=== PATIENT | male | born 1955 | race Caucasian/White ===

== ENCOUNTER 2017-03-13 05:05 | Inpatient (IN) ==
[2017-03-13 06:46] LABS: Basophils % 0.5 % (0.0-0.8); Eosinophils % 0.4 % (0.00-10.9); Hematocrit 44.9 VOL% (42.0-52.0); Hemoglobin 15.4 GM/DL (14.0-18.0); Immature Granulocytes % 0.4 %; Immature Granulocytes Absolute 0.02 #; Lymphocytes # 0.8 10*3/uL (1.4-4.0); Lymphocytes % 14.3 % (21.2-54.2); Mean Corpuscular HGB Conc 34.3 GM/DL (32-36); Mean Corpuscular Hemoglobin 31 PG (27-34); Mean Corpuscular Volume 89.1 FL (87-102); Mean Platelet Volume 9.3 FL (9.6-12.0); Monocytes # 0.5 10*3/uL (0.11-0.8); Monocytes % 8.1 % (1.7-12.7); Neutrophils # 4.2 10*3/uL (1.4-7.4); Neutrophils % 76.3 % (38.7-73.9); Platelet Count 254 T/CUMM (130-400); Red Blood Count 5.04 MC/CUMM (3.8-5.5); Red Cell Distribution Width 12.5 % (9.3-17.3); White Blood Count 5.5 T/CUMM (4-12)
[2017-03-13 07:31] LABS: Albumin 4.2 G/DL (3.4-5.0); Bilirubin,Total 1.5 MG/DL (0.2-1.0); Osmolality,Calculated 279.7 MOS/KG (273-304); Potassium 4.4 MMOL/L (3.5-5.1); Total Protein 7.2 G/DL (6.4-8.3)
--- NOTE | 2017-03-13 08:21 | Ultrasound Report ---
Right upper quadrant ultrasound Indication: Abdominal Pain Findings: The liver is normal in size and echogenicity. The gallbladder has multiple calculi with suggestion of trace amount of sludge present within the lumen. The gallbladder wall thickness is 5.0 mm . The common bile duct measures 6. mm. The visualized portion of the pancreas appear within normal limits The right kidney is normal in size and echogenicity and measures 10.8 cm . No free fluid or free air seen. Impression: Cholelithiasis with suggestion of trace amount sludge. No secondary signs of acute cholecystitis or other evidence of abnormality demonstrated. Ultrasound images stored and captured. PROCEDURE INTERPRETED AT [facility] DEPARTMENT OF RADIOLOGY Final Report Signed by: Dr. Peter Baldwin
--- NOTE | 2017-03-13 08:34 | Emergency Department Note ---
Katerine Garza Brittany, am scribing for, and in the presence of, Abhi Newsome MD 06:23. Mercedez Garza Phillip K, MD, personally performed the services described in this documentation, ascribed by Alix Garcias in my presence, and it is both accurate and complete 829 . Arrival - Arrival Chief Complaint: Abdominal / Flank Pain Stated Complaint: Severe Stomach pain ED Nursing Triage Note: C/O Upper abd pain radiating into back. Onset 2200 lastnight. Pt states that he has had the pain on and off for 1-2 months- was seen by Dr. Villar and was given antiacid due to the pain becoming more frequent after he eats. +abd bloating. +nausea Last BM-yesterday- normal. Denies fever. Mode of Arrival: Ambulatory Limitations: No Limitations Source: Patient Time Seen by Provider: 03/13/17 06:05 - History of Present Illness HPI Narrative: This is a 61 y/o white male,who presents to the ED with c/o abdominal pain which has been on and off for the past month. he localizes the pain to the RUQ. He states he normally takes acid blockers. He notes nausea but denies a fever or vomiting. He states his last normal BM was yesterday. He denies a Hx of gallstones. He states the pain is worse at night. He does a hx of stomach ulcers "some years ago.". He denies any melena. He reports now the pain has resolved somewhat. Pt has no other complaints/pain in the ED at this time. Pt has a PMHx of GERD and stomach ulcers. Pt denies a surgical Hx. Pt denies a family medical Hx. Pt denies the use of street drugs and tobacco products, but is an occasional drinker. Onset (ago): month(s) (Started 1 month ago.) Consistency: intermittent Severity: moderate Allergies/Adverse Reactions: Allergies Allergy/AdvReac Type Severity Reaction Status Date / Time No Known Allergies Allergy Unverified 11/13/15 15:15 Home Medications: Home Medications Medication Instructions Recorded Confirmed Type Levothyroxine Tab [Synthroid Tab] 75 mcg PO DAILY@0700 11/13/15 03/13/17 History Review of System - Review of System 12 point system: reviewed and no additional remarkable complaints except as stated - Review of System Constitutional: Present: fever Gastrointestinal: Present: abdominal pain, nausea. Absent: vomiting, melena Medical,Surgical,& Family Hx - Medical History Gastrointestinal: History of: GERD, GI Problems (Stomach ulcers) - Social History Smoking Status: Never smoker Frequency of Alcohol Use: Occasionally Type of Drug Use: None Exam Vital Signs: Vital Signs Temperature 98.5 F 03/13/17 05:12 Pulse Rate 87 03/13/17 08:15 Respiratory Rate 18 03/13/17 08:15 Blood Pressure 117/72 03/13/17 08:15 O2 Sat by Pulse Oximetry 100 03/13/17 08:15 - General General appearance: alert, in no apparent distress - Head Head exam: Present: atraumatic, normocephalic, normal inspection - Eye Eye exam: Present: normal appearance, PERRL, EOMI. Absent: nystagmus - ENT ENT exam: Present: normal exam, mucous membranes moist - Neck Neck exam: Present: normal inspection, full ROM, trachea midline. Absent: tenderness - Chest Chest inspection: Present: normal inspection, symmetric chest wall rise. Absent : tenderness - Respiratory Respiratory exam: Present: normal lung sounds bilaterally. Absent: respiratory distress - Cardiovascular Cardiovascular exam: Present: regular rate, normal rhythm, normal heart sounds. Absent: murmur, rubs, gallop, clicks - Abdominal Exam Abdominal exam: Present: soft, tenderness (Slight upper gastric tenderness), normal bowel sounds. Absent: distention, guarding, rebound, rigidity - Rectal Exam Rectal exam: Present: deferred - Extremities Exam Extremities exam: Present: normal inspection, full ROM, normal capillary refill. Absent: tenderness - Back Exam Back exam: Present: normal inspection, full ROM. Absent: tenderness, muscle spasm, rashes - Neurological Exam Neurological exam: Present: alert, oriented X3, CN II-XII intact. Absent: motor sensory deficit - Psychiatric Psychiatric exam: Present: normal affect, normal mood. Absent: depressed, agitated, anxious, flat affect - Skin Skin exam: Present: warm, dry, intact, normal color. Absent: rash, cyanosis, diaphoresis Results - Labs CBC & BMP: 03/13/17 06:28 03/13/17 06:28 Lab Results: I have reviewed the patients labs Labs: Laboratory Tests 03/13/17 06:28 WBC 5.5 RBC 5.04 Hgb 15.4 Hct 44.9 MCV 89.1 MCH 31 MCHC 34.3 RDW 12.5 Plt Count 254 MPV 9.3 L Neut % (Auto) 76.3 H Lymph % (Auto) 14.3 L Mason % (Auto) 8.1 Eos % (Auto) 0.4 Baso % (Auto) 0.5 Neut # (Auto) 4.2 Lymph # (Auto) 0.8 L Mason # (Auto) 0.5 Eos # (Auto) 0.0 Baso # (Auto) 0.0 Immature Gran % 0.4 Nucleated RBC % 0.0 Immature Gran # 0.02 Nucleated RBCs # 0.00 Immature Plt Fraction 0.0 - Diagnostic Findings Procedure: Ultrasound: report reviewed by me (Cholelithiasis with sludge) Disposition Clinical Impression: Cholelithiasis, Possible common bile duct stone Case discussed with: patient Condition: Stable Additional Instructions: Admit to Dr. Villar
[2017-03-13] MEDS ORDERED: ONDANSETRON 4 MG/2 ML VIAL IV PRN (10:15)
[2017-03-13] MEDS ORDERED: ACETAMINOPHEN 325 MG TABLET PO PRN (10:15)
--- NOTE | 2017-03-13 13:09 | General Surgery Consult Note ---
Assessment and Plan (1) Cholelithiasis Status: Acute Assessment and plan: This patient has symptomatic cholelithiasis. He has abnormal LFTs. These do not represent an obstructive pattern in my opinion but we should trend them to make sure that a preoperative ERCP would not be necessary. He will be admitted to Dr. Villar and I have ordered antibiotics Zosyn and repeat LFTs and CBC tomorrow. If his bilirubin is trending down and his alkaline phosphatase is still normal I will recommend laparoscopic cholecystectomy tomorrow. If his labs are heading in the opposite direction then I will consult Dr. Nowak for a preoperative ERCP. Hepatitis is also a possibility but I think that the much more common and likely scenario would be cholecystitis from his gallstones and sludge and I think addressing this versus appropriate to see if he responds to this. I have discussed the operation with the patient and his . I have discussed the risks, benefits, and alternatives of the operation, and the expected outcomes have been reviewed. I have also discussed the possibility of an open operation. In particular, I discussed the risk of bleeding, infection, hernias of the abdominal wall, injury to the intestines or liver, pancreatitis, dropped or retained stones in the abdomen, bile leak, and bile duct injury. The patient's questions have been answered. Current Visit: Yes History of Present Illness Chief complaint: Abdominal pain History of present illness: Mr. Lewis is a 61 year old male who has been developing intermittent right upper quadrant pain that radiates through to his back for the past several months which is postprandial with some nausea but no vomiting. He had a severe episode today and presented to the ER for evaluation. He was evaluated in the ER with CBC which showed a normal white blood cell count and some transaminitis in the 600-700 range as well as an elevated bilirubin at 1.5. He received some pain medication in the ER and was no longer in any pain when I saw him. The patient does have a history of alcohol use but does not drink heavily or every day. He did receive some vaccinations in the but no blood transfusions. He denies any significant past medical history and he has never had abdominal surgery. 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 Home Medications Medication Instructions Recorded Confirmed Type Levothyroxine Tab [Synthroid Tab] 75 mcg PO QAM 11/13/15 03/13/17 History Omeprazole [Omeprazole] 20 mg PO DAILY 03/13/17 03/13/17 History Allergies Allergy/AdvReac Type Severity Reaction Status Date / Time No Known Allergies Allergy Unverified 11/13/15 15:15 Medical,Surgical,& Family Hx - Medical History Gastrointestinal: History of: GERD, GI Problems (Stomach ulcers) - Social History Smoking Status: Never smoker Frequency of Alcohol Use: Occasionally Type of Drug Use: None - Constitutional Constitutional: Present: as per HPI - EENT Nose, mouth and throat: Present: as per HPI - Cardiovascular Cardiovascular: Present: as per HPI - Respiratory Respiratory: Present: as per HPI - Gastrointestinal Gastrointestinal: Present: as per HPI - Genitourinary Genitourinary: Present: as per HPI - Musculoskeletal Musculoskeletal: Present: as per HPI - Neurological Neurological: Present: as per HPI - Endocrine Endocrine: Present: as per HPI Hematologic/Lymphatic: Present: as per HPI Exam - Constitutional Vitals: Period Temp Pulse Resp BP Sys/Mejia Pulse Ox Last 24 Hr 98.5 F-98.5 F 75-97 16-18 117-165/69-89 95-100 General appearance: normal weight, no acute distress - Head Head exam: Present: normal inspection, normocephalic - Eye Eye exam: Present: EOMI. Absent: scleral icterus Pupils: Present: DONAL - ENT ENT exam: Present: normal exam Mouth exam: Present: normal external inspection, normal voice - Neck Neck exam: Present: normal inspection, trachea midline - Respiratory Respiratory exam: Present: clear to auscultation bilaterally. Absent: accessory muscle use, chest wall tenderness - Cardiovascular Cardiovascular exam: Present: RRR. Absent: systolic murmur, tachycardia - GI/Abdominal GI/Abdominal exam: Present: normal bowel sounds, soft. Absent: Wilkinson's sign, tenderness, rebound - Extremities Exam Extremities exam: Present: normal inspection, normal capillary refill - Back Exam Back exam: Present: normal inspection - Neurological Exam Neurological exam: Present: alert, oriented X3 Speech: Present: normal - Skin Skin exam: Present: normal color, warm Results - Labs CBC & BMP: 03/13/17 06:28 03/13/17 06:28 - Diagnostic Findings Procedure: Ultrasound: image reviewed by me, report reviewed by me (Gallbladder sludge with wall thickening. Normal-sized common bile duct.)
[2017-03-13] MEDS ORDERED: PIPERACILLIN/TAZOBACTAM 3,375 MG in SODIUM CHLORIDE 0.9% 100 ML IV SCH (14:00)
[2017-03-13] MEDS: PIPERACILLIN/TAZOBACTAM 3,375 MG in SODIUM CHLORIDE 0.9% 100 ML IV SCH ×2 (15:31→23:37)
[2017-03-13] MEDS: SODIUM CHLORIDE 0.9% 1,000 ML IV SCH (15:33)
--- NOTE | 2017-03-13 16:58 | Family Practice History&Phys ---
Assessment and Plan (1) Cholecystitis Status: Acute Assessment and plan: 03/13/2017: Repeat laboratory studies scheduled for the a.m. and will proceed with cholecystectomy if no evidence of choledocholithiasis is present Current Visit: Yes History of Present Illness Chief complaint: Abdominal pain History of present illness: Mr. Lewis is a 61 year old male Patient is a 61-year-old white male who presented to the emergency room with increasing abdominal pain that began last night. Patient's been having this type pain off and on for several weeks was seen in the office last week. Advised him to have a gallbladder ultrasound at that time we will try antiacid therapy first. This obviously failed and was found to have evidence of acute cholecystitis. Patient was admitted for surgical evaluation. He was noted to have elevated ALT and AST but relatively normal bilirubin and alkaline phosphatase. Patient denies any fever or chills. He was having back pain but his abdominal and back pain have now resolved. He was seen in consultation by Dr. Hoover for surgical evaluation. Home Medications Medication Instructions Recorded Confirmed Type Levothyroxine Tab [Synthroid Tab] 75 mcg PO QAM 11/13/15 03/13/17 History Omeprazole [Omeprazole] 20 mg PO DAILY 03/13/17 03/13/17 History Allergies Allergy/AdvReac Type Severity Reaction Status Date / Time No Known Allergies Allergy Verified 03/13/17 14:39 - Constitutional Constitutional: Absent: chills, fever(s), weakness - EENT Eyes: Absent: blurry vision, loss of vision Ears: Absent: decreased hearing, ear pain Nose, mouth and throat: Absent: dysphagia, sinus pressure, sore throat - Cardiovascular Cardiovascular: Absent: chest pain at rest, orthopnea, palpitations, PND - Respiratory Respiratory: Absent: cough, dyspnea - Gastrointestinal Gastrointestinal: Present: abdominal pain, bloating, cramping, nausea. Absent: diarrhea, hematemesis, hematochezia, melena - Genitourinary Genitourinary: Absent: dysuria, hematuria, urinary frequency - Musculoskeletal Musculoskeletal: Absent: back pain, joint swelling - Psychiatric Psychiatric: Absent: anxiety, depression - Endocrine Endocrine: Absent: fatigue, polydipsia, polyphagia - Hematologic/Lymphatic Hematologic/Lymphatic: Absent: easy bleeding, easy bruising Medical,Surgical,& Family Hx - Medical History HEENT: History of: Eye Problem (glasses/contacts) Endocrine: History of: Thyroid Disorder (hypothyroidism) Respiratory: History of: Obstructive Sleep Apnea (uses cpap at home-instructed to bring in) Gastrointestinal: History of: GERD, GI Problems (Stomach ulcers) - Surgical History Surgical History: noncontributory Thoracic Surgeries: Patient denies;: Lobectomy Neurologic Surgeries: Patient denies: Neurologic Surgery HEENT Surgeries: Patient denies: Eye Surgery, Thyroid Surgery, Tonsilectomy & Adenoidectomy Abdominal Surgeries: Patient denies: Abdominal Surgery - Family History Family History: Reports;: Family Diabetes (father) - Social History Smoking Status: Former smoker Frequency of Alcohol Use: Occasionally Type of Drug Use: None Exam - Constitutional Vitals: Period Temp Pulse Resp BP Sys/Mejia Pulse Ox Last 24 Hr 97.0 F-98.5 F 57-97 16-20 117-166/69-90 95-100 Exam: General: Objective patient is a well-developed white male in no acute distress. Patient able give an excellent history and states he is no longer having abdominal pain. HEENT: Pupils equal and reactive to light. Patent nares and airway Neck: No meningismus, adenopathy, thyromegaly. There are no auscultated carotid bruits. Cardiovascular: Regular rhythm. No murmurs or gallops Chest: Clear to auscultation without rales rhonchi wheezes. Abdomen: Soft nontender to palpation No masses, rebound, guarding or tenderness. There is no palpable hepatosplenomegaly or masses. Neuro: Cranial nerves intact and DTRs and strength symmetric in all extremities. Dermatologic: No evidence of abnormal lesions or masses. Musculoskeletal: There is no joint swelling or tenderness or deformity. Results - Labs CBC & BMP: 03/13/17 06:28 03/13/17 06:28 Lab Results: I have reviewed the past 24 hour labs
--- NOTE | 2017-03-13 18:33 | Event Note ---
Clinical findings reviewed. Discussed with Dr. Hoover. Patient with symptomatic gallstones and elevated liver tests. Patient is admitted on IV antibiotics and will have liver tests repeated tomorrow. ERCP may be needed if liver tests not improved. Otherwise, plan is for probable cholecystectomy with intraoperative cholangiogram to evaluate this. Please call if needed.
[2017-03-13] MEDS: DOCUSATE SODIUM 100 MG CAPSULE PO SCH (21:28)
[2017-03-14 07:47] LABS: Basophils % 0.8 % (0.0-0.8); Eosinophils # 0.2 10*3/uL (0.0-0.87); Eosinophils % 2.9 % (0.00-10.9); Hematocrit 43.6 VOL% (42.0-52.0); Hemoglobin 15.1 GM/DL (14.0-18.0); Immature Granulocytes % 0.2 %; Immature Granulocytes Absolute 0.01 #; Lymphocytes # 1.5 10*3/uL (1.4-4.0); Lymphocytes % 28.3 % (21.2-54.2); Mean Corpuscular HGB Conc 34.6 GM/DL (32-36); Mean Corpuscular Hemoglobin 31 PG (27-34); Mean Corpuscular Volume 88.3 FL (87-102); Mean Platelet Volume 9.2 FL (9.6-12.0); Monocytes # 0.3 10*3/uL (0.11-0.8); Monocytes % 6.3 % (1.7-12.7); Neutrophils # 3.2 10*3/uL (1.4-7.4); Neutrophils % 61.5 % (38.7-73.9); Platelet Count 249 T/CUMM (130-400); Red Blood Count 4.94 MC/CUMM (3.8-5.5); Red Cell Distribution Width 12.9 % (9.3-17.3); White Blood Count 5.2 T/CUMM (4-12)
[2017-03-14] MEDS: PANTOPRAZOLE 40 MG TABLET PO SCH (08:08)
[2017-03-14] MEDS: DOCUSATE SODIUM 100 MG CAPSULE PO SCH ×2 (08:08→20:28)
[2017-03-14] MEDS: SODIUM CHLORIDE 0.9% 1,000 ML IV SCH ×4 (08:08→22:11)
--- NOTE | 2017-03-14 08:14 | Family Practice Progress Note ---
Family Practice - PN: Subj Interval history: Patient is feeling much better as had no further abdominal pain, nausea or vomiting. He is ready to proceed with surgery if necessary but his liver function studies and lipase are yet pending. Has not had any fever or chills through the night. Exam (Progress Note) - Constitutional Vitals: Period Temp Pulse Resp BP Sys/Mejia Pulse Ox Last 24 Hr 97.0 F-97.5 F 51-97 16-20 110-166/56-90 95-100 Exam: Objective a well-developed gentleman in no acute distress. Is able give good history. He appears comfortable and is anxious to proceed. Cardiovascular heart rates regular without murmurs or gallops. Respiratory: Lungs clear to auscultation bilaterally. Abdomen: Abdomen soft and nontender to palpation with normal bowel sounds Results - Labs CBC & BMP: 03/14/17 07:31 03/13/17 06:28 Lab Results: I have reviewed the past 24 hour labs Assessment and Plan (1) Cholecystitis Status: Acute Assessment and plan: 03/13/2017: Repeat laboratory studies scheduled for the a.m. and will proceed with cholecystectomy if no evidence of choledocholithiasis is present 03/14/2017: Patient's repeat laboratory studies are pending. Current Visit: Yes
[2017-03-14] MEDS: PIPERACILLIN/TAZOBACTAM 3,375 MG in SODIUM CHLORIDE 0.9% 100 ML IV SCH (08:19)
[2017-03-14 08:23] LABS: Albumin 3.8 G/DL (3.4-5.0); Bilirubin,Direct 0.36 MG/DL (0.0-0.20); Bilirubin,Total 1.1 MG/DL (0.2-1.0); Calcium 8.3 MG/DL (8.5-10.1); Osmolality,Calculated 282.3 MOS/KG (273-304); Potassium 4.3 MMOL/L (3.5-5.1); Total Protein 6.7 G/DL (6.4-8.3)
[2017-03-14] MEDS: LEVOTHYROXINE 75 MCG TABLET PO SCH (09:39)
[2017-03-14] MEDS ORDERED: TISSUE ADHESIVE 1 EACH APPLICATOR TOP ONE (10:20)
[2017-03-14] MEDS ORDERED: LIDOCAINE 1%/EPI INJ 20 ML VIAL ONE (10:20)
--- NOTE | 2017-03-14 10:31 | Event Note ---
Labs are reviewed. Bilirubin is trending down. Alkaline phosphatase is still normal. It is my opinion that the transaminitis is probably related to the cholecystitis and have recommended addressing the gallbladder as the next step in the patient's care. We will do a cholangiogram in the OR. This was discussed with the patient and his . They are in agreement.
--- NOTE | 2017-03-14 11:33 | Operative Note ---
Date of procedure: 03/14/17 Pre-op diagnosis: Acute cholecystitis with abnormal LFTs Post-op diagnosis: same Procedure: Preoperative diagnosis Acute cholecystitis with abnormal LFTs Postoperative diagnosis Same Procedures performed Laparoscopic cholecystectomy with intraoperative cholangiogram Findings Acute and chronic cholecystitis was seen. The critical view of safety was obtained prior to placing clips on the cystic duct and cystic artery. Cholangiogram was normal. Complications None apparent Specimen Gallbladder Anesthesia GETA Blood loss 5 mL Indications Acute cholecystitis with abnormal LFTs the risks, benefits, and alternatives of the operation were discussed with the patient in detail, and the expected outcomes were reviewed. In particular, the risk of bowel injury, liver injury, bile duct leak and bile duct injury, as well as pancreatitis and retained or drop stones were discussed in detail. All the patient's questions were answered. She like to proceed with the operation. Description of procedure The patient was taken to the operating room and transferred to the operating table in the supine position. Pressure points were padded and SCDs were placed to bilateral lower extremities. General endotracheal anesthesia was administered. The abdomen was prepped chlorhexidine and draped sterilely. Preoperative antibiotics were administered, a timeout was performed. The abdomen was entered in a supraumbilical location of the Veress needle. The skin incision was made in the supraumbilical location with a 11 blade scalpel after local anesthetic was administered. Umbilical stalk was grasped with a penetrating towel clip. A Veress needle was used to enter the peritoneal cavity confirmed by double click technique. Aspiration was negative. Saline drop test confirmed intraperitoneal location. The abdomen was insufflated to 15 mmHg with an initial insufflation pressure of 2 mmHg. The Veress needle was removed and a 5 mm trocar was placed blindly. The towel clip was removed. Diagnostic laparoscopy was performed. There is no evidence of Veress needle or trocar injury. The patient was placed in reverse Trendelenburg and left side rolled down position. Under direct visualization, and after local anesthetic was administered, an 11 mm midepigastric trocar and 2 right subcostal 5 mm trochars were placed. The gallbladder was grasped at the fundus and infundibulum. The cystic plate peritoneum was dissected into the critical view of safety was obtained. The cystic duct and cystic artery were clipped. The cystic artery was clipped twice centrally and once laterally and the cystic duct was clipped laterally at its junction with the infundibulum. A cystic ductotomy was made and a cholangiogram catheter was inserted. Cholangiogram revealed normal anatomy with no filling defects in the bile duct and brisk flow into the duodenum. The primary intrahepatic biliary radicles were seen. The cholangiogram catheter was removed and the cystic duct was clipped twice centrally and divided with scissors between clips. The cystic artery was also divided with scissors. Gallbladder was removed from the gallbladder fossa using hook electrocautery. The gallbladder was placed in a Endo Catch retrieval bag through the 11 mm trocar and removed through the trocar with no significant fascial extension of the incision. The gallbladder fossa was suction irrigated until the effluent was clear. The CO2 was released from the abdomen and the trochars were removed. The skin incisions were closed with 4- 0 Monocryl subcuticular suture and sterile skin glue. The patient was awakened from anesthesia and transferred to recovery. Postoperative plan Advance diet as tolerated Pain control Anesthesia: SARKISA, local Surgeon / Physician: Acosta Hoover Estimated blood loss: minimal Specimens: other (galbladder) Condition: stable Disposition: PACU Results - Labs CBC & BMP: 03/14/17 07:31 03/14/17 07:31 Discharge Plan - Discharge Medications New HYDROcodone/ACETAMIN 7.5-325 [Pattison 7.5-325] 1 tablet PO Q4H PRN #20 tablet PRN Reason: Pain No Action Levothyroxine Tab [Synthroid Tab] 75 mcg PO QAM Omeprazole [Omeprazole] 20 mg PO DAILY - Follow Up or Referral Follow Up: Acosta Hoover MD [Physician] - 2 Weeks - Forms/Instructions
[2017-03-14] MEDS ORDERED: LABETALOL 100 MG/20 ML VIAL IV ONE (11:46)
[2017-03-14] MEDS ORDERED: HYDROmorphone 2 MG/1 ML VIAL ONE (11:48)
[2017-03-14] MEDS ORDERED: PROPOFOL 200 MG/20 ML VIAL IV ONE (11:48)
[2017-03-14] MEDS ORDERED: NEOSTIGMINE 10 MG/10 ML VIAL ONE (11:49)
[2017-03-14] MEDS ORDERED: KETOROLAC 30 MG/1 ML VIAL ONE (11:49)
[2017-03-14] MEDS ORDERED: ROCURONIUM 100 MG/10 ML VIAL IV ONE (11:49)
[2017-03-14] MEDS ORDERED: LACTATED RINGERS 1,000 ML IV ONE (11:49)
[2017-03-14] MEDS ORDERED: ONDANSETRON 4 MG/2 ML VIAL ONE (11:49)
[2017-03-14] MEDS ORDERED: SUCCINYLCHOLINE 200 MG/10 ML VIAL ONE (11:49)
[2017-03-14] MEDS ORDERED: SEVOFLURANE 1 UNIT/15 MINUTE INH ONE (11:49)
[2017-03-14] MEDS ORDERED: fentaNYL 100 MCG/2 ML VIAL ONE (11:49)
[2017-03-14] MEDS ORDERED: GLYCOPYRROLATE 0.4 MG/2 ML VIAL ONE (11:49)
[2017-03-14] MEDS ORDERED: ACETAMINOPHEN 1,000 MG/100 ML VIAL IV ONE (11:49)
[2017-03-14] MEDS ORDERED: MIDAZOLAM 2 MG/2 ML VIAL ONE (11:50)
[2017-03-14] MEDS ORDERED: LABETALOL 20 MG/4 ML SYRINGE IV ONE (11:57)
[2017-03-14] MEDS ORDERED: ONDANSETRON 4 MG/2 ML VIAL IV PRN (12:03)
[2017-03-14] MEDS: HYDROmorphone 2 MG/1 ML VIAL IV PRN ×3 (12:05→12:41)
[2017-03-14] MEDS ORDERED: hydrALAZINE 20 MG/1 ML VIAL IM ONE (12:30)
[2017-03-14] MEDS ORDERED: LACTATED RINGERS 1,000 ML IV SCH (12:30)
[2017-03-14] MEDS ORDERED: HYDROmorphone 2 MG/1 ML VIAL IV PRN (13:12)
--- NOTE | 2017-03-14 13:44 | Anesthesia Post-Op ---
Anesthesia Post OP - Post Ansesthetic Evaluation Patient seen in post op: Yes Resp: within normal limits CV: within normal limits Mental: within normal limits Temp: within normal limits [id number]: within normal limits Nausea and Vomiting: within normal limits Pain: within normal limits
[2017-03-14] MEDS: KETOROLAC 30 MG/1 ML VIAL IV SCH ×3 (14:02→20:28)
--- NOTE | 2017-03-14 14:29 | Fluoroscopy Report ---
History: Abdominal pain. Patient undergoing cholecystectomy Date: 03/14/2017 Study: Intraoperative cholangiogram Comparison exam: No previous similar Contrast material was injected into the biliary tree via the cystic duct stump in this patient undergoing cholecystectomy. There is no choledochal stone. There is no biliary stricture or other mass. The common bile duct is normal in caliber. There is contrast material in the second portion of the duodenum compatible with patency of the common bile duct. The intrahepatic ducts are normal in appearance. 25 seconds fluoroscopy time was utilized. 84 fluoroscopic images were captured and archived. Impression: Normal intraoperative cholangiogram in this patient undergoing cholecystectomy PROCEDURE INTERPRETED AT [facility] [place] DEPARTMENT OF RADIOLOGY Final Report Signed by: Dr. Paris Nowak
--- NOTE | 2017-03-14 21:21 | Event Note ---
General Surgery Progress Note Chief complaint This patient is a 61-year-old man admitted with cholecystitis treated with laparoscopic cholecystectomy with intraoperative cholangiogram was normal on Interval history No events since surgery. The patient is having some shoulder pain bilaterally but he is doing well overall. Pain is well controlled. Is having some belching but no nausea or vomiting. He has been up out of bed multiple times and is urinating without difficulty. Physical exam Afebrile, normal vital signs Abdomen with expected postoperative tenderness. Labs None Imaging None new Assessment and plan Continue diet as tolerated Repeat CMP tomorrow Discharge home tomorrow if doing well and labs are looking better.
[2017-03-15] MEDS: KETOROLAC 30 MG/1 ML VIAL IV SCH ×2 (01:42→06:27)
[2017-03-15 06:38] LABS: Bilirubin,Total 1.9 MG/DL (0.2-1.0); Calcium 7.7 MG/DL (8.5-10.1); Osmolality,Calculated 284.1 MOS/KG (273-304); Potassium 3.8 MMOL/L (3.5-5.1); Total Protein 5.5 G/DL (6.4-8.3)
--- NOTE | 2017-03-15 08:21 | Discharge Summary ---
Hospital Course - Hospital Course Hospital Course: Patient is a 61-year-old white male admitted through the emergency room with abdominal pain. Patient was found to have acute cholecystitis with some elevation of LFTs and slight elevation of bilirubin. He was not felt to have choledocholithiasis. Was seen in consultation with Dr. Shane to open patient underwent laparoscopic cholecystectomy and interoperative cholangiogram on 2016. Patient did well from this and his transaminases are declining. Patient was tolerating regular food and is anxious for discharge. I think he can be discharged today if Dr. Hoover agrees. Diagnosis - Discharge Diagnosis (1) Cholecystitis Status: Acute Specialty Discharge - Follow Up or Referrals Follow up with: Acosta Hoover MD [Physician] - 2 Weeks Discharge Plan - Discharge Data Disposition: Disch To Home/Self Care Condition at Discharge: Stable Discharge Diet: advance to your usual diet Activity: resume usual activities as tolerated Hygiene: no restrictions Weight Bearing at Discharge: full weight bearing Driving: no restrictions Contact your physician if you experience:: fever over 101 - Discharge Medications New HYDROcodone/ACETAMIN 7.5-325 [[place] 7.5-325] 1 tablet PO Q4H PRN #20 tablet PRN Reason: Pain Continue Levothyroxine Tab [Synthroid Tab] 75 mcg PO QAM Discontinued Omeprazole [Omeprazole] 20 mg PO DAILY - Follow Up or Referral Follow Up: Acosta Hoover MD [Physician] - 2 Weeks Bruce Villar MD [Primary Care Provider] - 1 Week (LFTs in 1 week) - Forms/Instructions Exam - Constitutional Vitals: Period Temp Pulse Resp BP Sys/Mejia Pulse Ox Last 24 Hr 97.2 F-99.0 F 52-88 14-26 93-192/50-115 88-98 Exam: Objective a well-developed gentleman in no acute distress. Is able give good history. He appears comfortable and is anxious for discharge Cardiovascular heart rates regular without murmurs or gallops. Respiratory: Lungs clear to auscultation bilaterally. Abdomen: Abdomen soft and slightly tender to palpation with normal bowel sounds Discharge Results Labs on day of discharge: Labs from last 24 hours 03/15/17 03/14/17 04:06 07:31 Sodium 142 141 Potassium 3.8 4.3 Chloride 108 H 109 H Carbon Dioxide 26 27 Anion Gap 11.8 9.3 BUN 15 17 Creatinine 1.10 1.10 GFR Calculation 84 83 BUN/Creatinine Ratio 13.00 15.00 Glucose 123 H 96 Calculated Osmolality 284.1 282.3 Calcium 7.7 L 8.3 L Total Bilirubin 1.90 H 1.10 H Direct Bilirubin 0.360 H AST 149 H 361 H ALT 509 H 869 H Alkaline Phosphatase 50 61 Total Protein 5.5 L 6.7 Albumin 3.0 L 3.8 Globulin 2.5 2.9 Albumin/Globulin Ratio 1.2 1.3 Lipase 121.0 D Transaminases have improved DS: Provider Date of admission: 03/13/17 10:14 Primary care physician: Bruce Villar MD Attending physician on admission: Bruce Villar MD Consults: 03/13/17 10:15 Consult to Case Mgmt/Social Srvs [CONS] Routine Reason for Case Mgmt/Social Srvs: Discharge Planning 03/13/17 10:16 Consult to Physician [CONS] Routine Comment: Consulting Provider: Gilbert Nowak Consulting Provider Notified: Yes When should Consulting Provider be notified: Now Consult to Specialist Group: Gastroenterology When should Consulting Provider be notified: Now Person Notified: [facility] Date Notified: 03/13/17 Time Notified: 14:16 03/13/17 13:22 Consult to Physician [CONS] Routine Comment: cholelithiasis Consulting Provider: Acosta Hoover Consulting Provider Notified: Yes When should Consulting Provider be notified: Now Consult to Specialist Group: Surgery When should Consulting Provider be notified: Now Person Notified: ROGELIO Date Notified: 03/13/17 Time Notified: 13:57 03/13/17 15:06 Consult to Case Mgmt/Social Srvs [CONS] Routine Reason for Case Mgmt/Social Srvs: Other Consult Comment: advance directives/living will 03/14/17 09:14 Consult to Anesthesiology [CONS] Routine Consulting Provider: Reason for Anesthesiology: Pre-op Clearance Discharging clinician: Bruce Villar MD Expected date of discharge: 03/15/17
[2017-03-15] MEDS: LEVOTHYROXINE 75 MCG TABLET PO SCH (08:22)
[2017-03-15] MEDS: PANTOPRAZOLE 40 MG TABLET PO SCH (08:22)
[2017-03-15] MEDS: DOCUSATE SODIUM 100 MG CAPSULE PO SCH (08:22)
[2017-03-15 10:53] VITALS: BP 125/62
--- NOTE | 2017-03-15 11:23 | Pathology Report from [facility] ---
[facility] [place] ACCESSION # : [id number] PATIENT NAME : Zenobia Simon ORDERING DR : Acosta Hoover MD CLINICAL HX: Cholelithiasis POST-OP DX: Same SPECIMEN INFO: Gallbladder GROSS DESCRIPTION: The specimen is received in formalin labeled with the patients name and consists of a focally opened gallbladder measuring 8.7 x 3.6 cm. The serosa is pink-yellow and fatty. The wall averages 0.2 cm in thickness. The mucosa is velvety, gold-pink. The lumen contains viscous gold bile which is admixed with innumerable tiny yellow-gold stones collectively measuring 2.4 cm x up to 2.0 cm. Also in the container are innumerable tiny stone particles measuring 3.0 cm x up to 3.5 cm. Driving Instructor tissue submitted in one cassette. DIAGNOSIS FOR ZENOBIA SIMON: GALLBLADDER, CHOLECYSTECTOMY: Chronic cholecystitis. Cholelithiasis. COLLECTED DATE: 03/14/2017 [facility] [place] REPORT DATE: 03/15/2017 ELECTRONICALLY SIGNED BY: Clarisa Mckay M.D. 03/15/2017 - 9:23:38 [facility]
== END 2017-03-15 10:20 | disposition home or self-care (01) | DRG 419 ==
LOC: N.ED 05:05 → N.EDINP 10:14 → N.4E 13:37
PROVIDERS: ADMIT Family Medicine; ATTEND Family Medicine
PROC: LAPCHOL (2017-03-14 09:00)